=== PATIENT | female | born 1985 | race Caucasian/White ===

== ENCOUNTER 2018-01-19 09:15 | Inpatient (IN) | payer OTHER ==
[~2018-01-19] VITALS: Ht 157.5 cm; Wt 3.2 kg
[2018-01-23] MEDS ORDERED: PRENATAL TABLE1 EAC1 PO (22:49)
== END 2018-01-26 16:37 | disposition home or self-care (01) | DRG 766 ==
LOC: OB/GYN 01-23 22:30 → LDR 01-23 22:30 → OB/GYN 01-24 00:34
PROVIDERS: Obstetrics & Gynecology
PROC: 4A1HXCZ Monitoring of Products of Conception, Cardiac Rate, External Approach (ICD-10-PCS; 2018-01-23)
PROC: 10D00Z1 Extraction of Products of Conception, Low, Open Approach (ICD-10-PCS; principal; 2018-01-23 22:15)
PROC: 4A033R1 Measurement of Arterial Saturation, Peripheral, Percutaneous Approach (ICD-10-PCS; 2018-01-24)
DX: O34.211 Maternal care for low transverse scar from previous cesarean delivery (principal); Z3A.39 39 weeks gestation of pregnancy; Z37.0 Single live birth